=== PATIENT | female | born 1970 | race Caucasian/White ===

== ENCOUNTER 2021-02-26 16:50 | Emergency (ER) | payer OTHER ==
[2021-02-26 17:25] VITALS: BP 141/91; PULSE 61; TEMP 98; BMI 32.9
[2021-02-26] MEDS ORDERED: ACETAMINOPHEN 325 MG TABLET (FP) PO ONE (17:54)
[2021-02-26] MEDS ORDERED: ACETAMINOPHEN 325 MG TABLET (FP) ONE (18:06)
[2021-02-26 18:26] LABS: BASO % 1.1 % (0-2.0); EOS % 1.8 % (0-4.5); HEMATOCRIT 36.9 % (32.4-45.2); HEMOGLOBIN 12.2 GM/dL (10.7-15.3); LYMPH % 42.9 % (8-40); MCH 27.4 pg (25.7-33.7); MCHC 33.1 g/dl (32.0-36.0); MEAN CELL VOLUME 82.5 fl (80-96); MEAN PLT VOLUME 7.3 fl (7.5-11.1); NEUT % 46.2 % (42.8-82.8); PLATELET COUNT 311 10^3/uL (134-434); RBC 4.47 M/mm3 (3.60-5.2); RDW 13.2 % (11.6-15.6); WHITE BLOOD COUNT 5.2 K/mm3 (4.0-10.0)
[2021-02-26 18:35] LABS: CHLORIDE 105 mmol/L (98-107); SODIUM 137 mmol/L (136-145)
[2021-02-26 18:39] LABS: ALBUMIN 3.8 g/dl (3.4-5.0); ANION GAP 8 MMOL/L (8-16); BLOOD UREA NITROGEN 7.5 mg/dL (7-18); CO2 24 mmol/L (21-32); GLUCOSE,RANDOM 93 mg/dL (74-106)
[2021-02-26 18:42] LABS: SGOT/AST 20 U/L (15-37); SGPT/ALT 32 U/L (13-61)
[2021-02-26 18:43] LABS: CREATININE 0.5 mg/dL (0.55-1.3)
[2021-02-26 18:44] LABS: BILIRUBIN,TOTAL 0.8 mg/dL (0.2-1); TOT PROT 7.8 g/dl (6.4-8.2)
[2021-02-26 18:45] LABS: ALK PHOS 97 U/L (45-117)
== END 2021-02-26 22:23 | disposition home or self-care (01) ==
LOC: JER 16:50
DX: R51.9 Headache, unspecified (principal)
CPT/HCPCS: 36415; 70450-TC; 80053; 84443; 84484; 84703; 85025; 93005; 93010; 99285-25